=== PATIENT | male | born 1975 | race Caucasian/White ===

== ENCOUNTER 2020-09-21 05:54 | Emergency (ER) | payer BC, SELFPAY ==
--- NOTE | ~2020-09-21 | CT_ITS ---
EXAMINATION: CT ABDOMEN AND PELVIS WITHOUT CONTRAST CLINICAL INFORMATION: Right flank pain COMPARISON: None TECHNIQUE: Multidetector volumetric imaging was performed from the superior aspect of the liver through the pubic symphysis. Sagittal and coronal reformatted images were obtained on the technologist's workstation. This CT examination was performed using dose optimization techniques as appropriate, variously including the following: *Automated exposure control *Adjustment of mA and/or kV according to patient size (this includes techniques or standardized protocols for targeted exams where dose is matched to indication/reason for exam; i.e. extremities or head) *Use of iterative reconstruction technique DLP: 689 mGy-cm FINDINGS: LUNG BASES: The visualized lung bases are unremarkable. LIVER, GALLBLADDER, AND BILIARY TREE: The liver is normal in size, shape, and attenuation. No focal hepatic lesion or biliary ductal dilatation is present. The gallbladder is unremarkable with no evidence of radiopaque gallstones, gallbladder wall thickening, or obvious pericholecystic inflammatory changes. PANCREAS: Unremarkable. SPLEEN: Unremarkable. ADRENAL GLANDS: Unremarkable. KIDNEYS AND URETERS: The kidneys are normal in size, shape, and attenuation. No hydronephrosis, hydroureter, or calculi seen. No perinephric stranding. BLADDER: Unremarkable. GASTROINTESTINAL TRACT: There is scattered stool in the right colon. Rest of colon is normal. The small bowel loops are normal caliber. Appendix is normal caliber. No inflammatory process seen in the abdomen. ABDOMINAL WALL: There is small umbilical hernia containing fat.. LYMPH NODES: Normal. VASCULAR: Unremarkable. PELVIC VISCERA: The prostate gland is normal size. No abnormal pelvic or hilar lymph nodes seen. OSSEOUS STRUCTURES: Unremarkable. CT/CT abdomen pelvis wo con IMPRESSION: No acute intra-abdominal process seen.
[2020-09-21 05:59] VITALS: BP 163/57; PULSE 65; RESP 16; TEMP 36.4; O2SAT 95; BMI 34.2
[2020-09-21 06:23] LABS: Basophils Percent Auto 0.2 % (0-2); Eosinophils Absolute Auto 0.1 X10*3/uL (0.0-0.4); Eosinophils Percent Auto 0.6 % (0-4); Hematocrit 44.8 % (42-52); Hemoglobin 15.5 g/dl (14.0-18.0); Imm Gran Abs Auto 0.02 X10*3/uL (0.00-0.03); Imm Gran Pct Auto 0.2 % (0.0-0.4); Lymphocytes Percent Auto 11.5 % (20-40); MANUAL DIFF FLAG NO; Mean Corpuscular HGB Conc 34.6 g/dl (31.0-36.0); Mean Corpuscular Hemoglobin 29.5 pg (27.0-33.0); Mean Corpuscular Volume 85.3 fL (80-98); Monocytes Absolute Auto 0.4 X10*3/uL (0.1-1.2); Monocytes Percent Auto 4.1 % (2-11); Neutrophils Absolute Auto 7.6 X10*3/uL (2.0-8.3); Neutrophils Percent Auto 83.4 % (45-73); Platelet Count 219 X10*3/uL (160-400); Red Blood Count 5.25 X10*6/uL (4.60-5.80); Red Cell Distribution Width 12.1 % (11.0-16.0); White Blood Count 9.1 X10*3/uL (4.8-10.8)
--- NOTE | 2020-09-21 06:27 | ED.ABDPAIN ---
HPI - Abdominal Pain General Chief Complaint: Abdominal Pain Stated Complaint: Flank pain Time Seen by Provider: 09/21/20 06:05 Source: patient Mode of arrival: ambulatory History of Present Illness HPI narrative: This is a 44-year-old male without significant past medical history who presents with acute onset of right flank pain radiating into the groin with associated nausea and vomiting as well as chills but denies fever/diarrhea. He denies any history of kidney stones in the past. Related Data Allergies Allergy/AdvReac Type Severity Reaction Status Date / Time Penicillins [PENICILLINS] Allergy Intermediate THROAT Verified 09/21/20 06:22 CLOSES UP Review of Systems Review of Systems Pertinent positives and negatives as stated in HPI 10 point review of systems is otherwise negative. Physical Exam Vital Signs: Vital Signs: Last Vital Signs Temp 97.6 F 09/21/20 05:59 Pulse 65 09/21/20 05:59 Resp 16 09/21/20 05:59 BP 163/57 H 09/21/20 05:59 Pulse Ox 95 09/21/20 05:59 Body Mass Index 34.2 VITAL SIGNS: Reviewed. GENERAL: Well developed, well nourished, in no acute distress. HEAD: Normocephalic/atraumatic, NOSE: Nares patent bilateral OROPHARYNX: no oral lesions noted, posterior pharynx clear NECK: Supple, no adenopathy LUNGS: Normal breath sounds. No adventitious sounds or accessory muscle use. SpO2<95> CARDIOVASCULAR: Regular rate and rhythm without noted murmurs ABDOMEN: Obese, Soft, mild tenderness along the flank without rebound, non-distended with bowel sounds. NEUROLOGIC: Alert and oriented x 4. Course Course Course Narrative: This is a 44-year-old male with history and clinical presentation most consistent with renal colic and doubt hernia or appendicitis, UTI. - labs, pain medication, IV fluids, CT scan Signed out to Dr Phillips [facility] - Abdominal Pain Lab Data Result diagrams: 09/21/20 06:17 09/21/20 06:17 Labs: Lab Results 09/21/20 Range/Units 06:17 WBC 9.1 (4.8-10.8) X10*3/uL RBC 5.25 (4.60-5.80) X10*6/uL Hgb 15.5 (14.0-18.0) g/dl Hct 44.8 (42-52) % MCV 85.3 (80-98) fL MCH 29.5 (27.0-33.0) pg MCHC 34.6 (31.0-36.0) g/dl RDW 12.1 (11.0-16.0) % Plt Count 219 (160-400) X10*3/uL MPV 10.0 (9.4-12.4) fL Immature Gran % (Auto) 0.2 (0.0-0.4) % Neut % (Auto) 83.4 H (45-73) % Lymph % (Auto) 11.5 L (20-40) % [place] % (Auto) 4.1 (2-11) % Eos % (Auto) 0.6 (0-4) % Baso % (Auto) 0.2 (0-2) % Lymph # (Auto) 1.0 L (1.2-4.9) X10*3/uL [place] # (Auto) 0.4 (0.1-1.2) X10*3/uL Eos # (Auto) 0.1 (0.0-0.4) X10*3/uL Baso # (Auto) 0.0 (0.0-0.2) X10*3/uL Abs Immat Gran (auto) 0.02 (0.00-0.03) X10*3/uL Absolute Neuts (auto) 7.6 (2.0-8.3) X10*3/uL Absolute Nucleated RBC 0.000 (0.0-0.012) X10*3/uL Nucleated RBC % (auto) 0.0 (0.0-0.2) /100WBC [facility] Past Medical History Source: nursing notes reviewed Medical History Asthma Social History Social History Advance Directives: No Advance Directives Information Provided: No
[2020-09-21] MEDS: ondansetron HCL 4 MG/2 ML VIAL IVPUSH (06:28)
[2020-09-21] MEDS: Ketorolac Tromethamine 15 MG/ML VIAL IVPUSH (06:28)
[2020-09-21] MEDS: Acetaminophen 325 MG TABLET 975 MG PO (06:28)
--- NOTE | 2020-09-21 06:42 | PC.NURSE ---
PT TO ROOM AMBULATORY WITH C/O RIGHT SIDED BACK PAIN WHICH RADIATES INTO R ABD AREA. +NAUSEA, +VOMITING X 1. PT ARRIVES ALERT, RESPIRATIONS EASY, N/L. SKIN W/D. PT RATING PAIN 02/16. IN ROOM FOR EVAL. HL PLACED TO [facility], LABS DRAWN TO LAB. NS UP AND RUNNING W/O, SITE INTACT. PT AWAITING FOR CT.
[2020-09-21 06:53] LABS: Anion Gap 16 (12-20); Blood Urea Nitrogen 17 mg/dL (9-16); Calcium 9.2 mg/dL (8.4-10.2); Carbon Dioxide 22 mmol/L (22-29); Chloride 106 mmol/L (96-108); Creatinine Clr Calc Pharmacy 88.4; Estimated Glomerular Filt Rate > 60; Glucose Random 162 mg/dL (60-115); Potassium 4.4 mmol/L (3.3-5.1); Sodium 140 mmol/L (135-145)
--- NOTE | 2020-09-21 07:01 | PC.NURSE ---
report taken from rian dempsey pt here for r side flank pain radiating to r side abd. pt blood work pending, medicated per emar, fluids infusing. awaiting ct scan results, awaiting ua spec. pt sts pain controlled att, still feeling a bit nauseous . no vomiting noted. wctm.
[2020-09-21 07:53] LABS: Appearance Urine CLEAR; Color Urine YELLOW; Glucose Urine UA NEG (NEG); Leukocyte Esterase Urine NEG (NEG); Nitrite Urine NEG (NEG); PH 5.5 (5.0-8.0); Specific Gravity - Urine >= 1.030 (1.005-1.025); Urine Blood 2+ (NEG); Urine Ketones NEG (NEG); Urine Protein NEG (NEG-TRACE)
[2020-09-21 08:02] LABS: Mucus Urine 2+ /LPF; Squamous Epithelial Cell Urine TRACE /LPF; WBC Urine 0-2 /HPF (0-4)
== END 2020-09-21 08:45 | disposition home or self-care (01) ==
PROVIDERS: Emergency Provider Student in an Organized Health Care Education/Training Program; PCP Internal Medicine
DX: N23 Unspecified renal colic (principal); R11.2 Nausea with vomiting, unspecified
CPT/HCPCS: 36415; 74176; 80048; 81001; 85025; 96374; 96375; 99284; J1885; J2405